=== PATIENT | female | born 1965 ===

== ENCOUNTER 2021-01-25 11:15 | Inpatient (IN) | payer OTHER ==
[~2021-01-25] VITALS: Ht 157.5 cm; Wt 66.7 kg
[2021-02-21] MEDS ORDERED: CLONAZEPAM2 MG (13:27)
[2021-03-01] MEDS ORDERED: PERCOCET 5-3251 EACH PO (07:57)
[2021-03-01] MEDS ORDERED: NEURONTIN300 MG PO (07:57)
[2021-03-01] MEDS ORDERED: KETO10TA2 PO (07:58)
[2021-03-01] MEDS ORDERED: DERMOPLAST PAIN78 GM TOP (07:59)
[2021-03-01] MEDS ORDERED: MIRALAX17 GM PO (08:58)
[2021-03-01] MEDS ORDERED: ANTI-GAS166 MG PO (08:58)
[2021-03-01] MEDS ORDERED: PEPCID AC20 MG PO (08:58)
== END 2021-03-01 12:55 | disposition home or self-care (01) | DRG 761 ==
LOC: ADM 11:15 → EDSTATUS 02-21 11:00 → SURH 02-28 05:56 → SURG 02-28 05:56 → O/R 02-28 05:56 → SURH 02-28 11:00 → SURG 02-28 12:17
PROVIDERS: ADMIT Surgery; ATTEND Surgery
PROC: 3E0T3BZ Introduction of Anesthetic Agent into Peripheral Nerves and Plexi, Percutaneous Approach (ICD-10-PCS; 2021-02-28)
PROC: 3E0F7SF Introduction of Other Gas into Respiratory Tract, Via Natural or Artificial Opening (ICD-10-PCS; 2021-02-28)
PROC: 0JQC3ZZ Repair Pelvic Region Subcutaneous Tissue and Fascia, Percutaneous Approach (ICD-10-PCS; principal; 2021-02-28 07:00)
DX: N81.6 Rectocele (principal); K59.09 Other constipation; K59.02 Outlet dysfunction constipation; Z20.822 Contact with and (suspected) exposure to COVID-19